=== PATIENT | female | born 1965 | race Caucasian/White ===

== ENCOUNTER → 2017-01-25 | Outpatient (CLI) | payer BC ==
--- NOTE | 2017-01-25 15:02 | MAMMOGRAPHY REPORT ---
BILATERAL DIGITAL SCREENING MAMMOGRAM TOMOSYNTHESIS WITH CAD: 01/25/2017 CLINICAL HISTORY: Routine screening. Patient has no complaints. TECHNIQUE: Breast tomosynthesis in addition to standard 2D mammography was performed. Current study was also evaluated with a Computer Aided Detection (CAD) system. COMPARISON: Comparison is made to exams dated: 11/17/2015 mammogram and 12/12/2013 mammogram. BREAST COMPOSITION: There are scattered areas of fibroglandular density in both breasts. FINDINGS: No suspicious masses, calcifications, or areas of architectural distortion are noted in e ither breast. There has been no significant interval change compared to prior exams. IMPRESSION: ACR BI-RADS CATEGORY 1: NEGATIVE There is no mammographic evidence of malignancy. A 1 year screening mammogram is recommended. The p atient will receive written notification of the results. Approximately 10% of breast cancers are not detected with mammography. A negative mammographic repor t should not delay biopsy if a clinically suggestive mass is present. Chana Ochoa M.D. ah/:01/25/2017 08:27:30 [place] Operator: Juliet MCDANIEL,R, M, [facility] letter sent: Normal 1/2 BI-RADS Code: ACR BI-RADS Category 1: Negative
== END | disposition home or self-care (01) ==
LOC: C.MAMM 08:01
PROVIDERS: ATTEND Family Medicine
DX: Z12.31 Encounter for screening mammogram for malignant neoplasm of breast (principal)

== ENCOUNTER → 2017-05-18 | Outpatient (CLI) | payer BC ==
[2017-05-18 13:01] LABS: ESTIMATED AVERAGE GLUCOSE 117 mg/dl; HA1C FLAG Normal (Normal)
[2017-05-18 17:11] LABS: CHOLESTEROL/HDL RATIO 4.7
== END | disposition home or self-care (01) ==
LOC: C.LABPBG 10:22
PROVIDERS: ATTEND Family Medicine
DX: Z01.419 Encounter for gynecological examination (general) (routine) without abnormal findings (principal); Z68.39 Body mass index [BMI] 39.0-39.9, adult; R73.09 Other abnormal glucose

== ENCOUNTER → 2017-05-18 | Outpatient (CLI) | payer BC ==
[2017-05-18 11:53] LABS: BASO % 1.7 %; COMPLETE YES; HEMATOCRIT 43.4 % (37-47); IG% 0.2 %; LYMPH % 34.5 %; LYMPH ABS # 2.07 K/uL (1.2-3.4); MEAN CELL VOLUME 87.5 fL (80-100); MEAN CORPUSCULAR HEMOGLOBIN 29.2 pg (25-34); MEAN CORPUSCULAR HGB CONC 33.4 g/dl (32-36); MEAN PLATELET VOLUME 11.8 fL (7.4-10.4); MONO % 10.7 %; NEUT % 47.9 %; PLATELET COUNT 255 K/uL (130-400); RED BLOOD COUNT 4.96 M/uL (4.2-5.4)
[2017-05-18 17:12] LABS: ALT/SGPT 23 U/L (12-78); AST/SGOT 15 U/L (15-37); BLOOD UREA NITROGEN 9 mg/dl (7-18); BUN/CREATININE RATIO 10.8 (10-20); CALCIUM 8.5 mg/dl (8.5-10.1); CARBON DIOXIDE 28 mmol/L (21-32); CHLORIDE 109 mmol/L (98-107); CREATININE 0.86 mg/dl (0.60-1.20); GLUCOSE 91 mg/dl (70-99); POTASSIUM 4.4 mmol/L (3.5-5.1); SODIUM 141 mmol/L (136-145)
[2017-05-18 17:15] LABS: ALKALINE PHOSPHATASE 71 U/L (45-117)
[2017-05-22 16:37] LABS: VIT B1 PLASMA(THIAMIN)**90353 9 nmol/L (8-30)
== END | disposition home or self-care (01) ==
LOC: C.LABPBG 10:25
PROVIDERS: ATTEND Physician Assistant Surgical
DX: E66.01 Morbid (severe) obesity due to excess calories (principal); Z98.84 Bariatric surgery status

== ENCOUNTER 2017-10-18 07:00 | Emergency (ER) | payer BC ==
[2017-10-18 07:07] VITALS: TEMP 36.8
[2017-10-18] MEDS ORDERED: SULF800T23 PO (07:25)
[2017-10-18] MEDS ORDERED: ALBINS/ INH (07:28)
[2017-10-18] MEDS ORDERED: BUPR-79 PO (07:28)
[2017-10-18] MEDS ORDERED: LEVALBUTEROL 0.63MG/3 ML NEB INH STA (07:42)
[2017-10-18] MEDS ORDERED: DEXAMETHASONE SOD INJ 4 MG/ML 5 ML VIAL IM STA (07:42)
[2017-10-18] MEDS ORDERED: DEXAMETHASONE **PF** INJ 10 MG/ML VIAL ONE (08:00)
[2017-10-18 08:04] VITALS: PULSE 100; O2SAT 99
--- NOTE | 2017-10-18 08:11 | DIAGNOSTIC IMAGING REPORT ---
CHEST ONE VIEW PORTABLE CLINICAL HISTORY: cough since Sat wheezing dyspnea COMPARISON STUDY: No previous studies for comparison. FINDINGS: Minimal atelectasis left base. Lungs otherwise clear. No evidence for cardiac enlargement. Diaphragms smooth. IMPRESSION: Minimal atelectasis left base. Otherwise negative study. The above report was generated using voice recognition software. It may contain grammatical, syntax or spelling errors. Electronically signed by: Phoenix Snyder M.D. 10/18/2017 8:09 AM Dictated Date/Time: 10/18/2017 8:09 AM
--- NOTE | 2017-10-18 08:18 | EMERGENCY ROOM VISIT NOTE ---
History First contact with patient: 07:15 Chief Complaint: RESPIRATORY PROBLEMS Stated Complaint: CANT BREATHE Nursing Triage Summary: pt reports being ill for 1 week with cough, sore throat, low grade temp pt saw pcp yesterday and started on Bactrim pt reports "feeling no better today" pt taking fluids at triage, noel asked pt to refrain from drinking, pt reports "if I dont drink my throat will close up" pt has no drooling and is able to swallow fluids took 2 neb this am History of Present Illness The patient is a 51 year old female who presents to the Emergency Room with complaints of a cough beginning 6 days ago. She reports the cough is non- productive, has been getting worse, and is associated with shortness of breath. She states she feels she is unable to get a full breath in. She denies a history of asthma, COPD, but states she has self-medicated with Bactrim bid since yesterday and her son's nebulizers this morning. She reported the nebulizers helped with her breathing but that they made her feel jittery. She denies chest pain, but states her ribs do ache after coughing. She denies n/v, abdominal pain, fever, chills, leg swelling, recent immobilization, surgery or travel. She has been eating and drinking without problems. She also reports her family members have been ill recently, with one daughter having a cold and the other recovering from strep throat. She reports she received the flu shot this year. Review of Systems See HPI for pertinent positives & negatives. A total of 10 systems reviewed and were otherwise negative. Past Medical/Surgical History Medical Problems: (1) PNA (pneumonia) Social History Smoking Status: Former Smoker Current/Historical Medications Scheduled Albuterol Sulf (Proventil 0.083% 2.5MG/3ML), Unknown Dose INH UD Bupropion (Wellbutrin Sr), 150 MG PO BID Sulfa/Trimethoprim (Bactrim Ds 800MG/160MG), 1 TAB PO BID Scheduled PRN Levalbuterol (Levalbuterol HCl), 0.63 MG NEB TID PRN for SOB/Wheezing Physical Exam Vital Signs Date Time Temp Pulse Resp B/P (MAP) Pulse Ox O2 Delivery O2 Flow Rate FiO2 10/18/17 08:08 101 24 136/77 10/18/17 08:04 100 18 99 Room Air 10/18/17 07:09 99 Room Air 10/18/17 07:07 36.8 107 20 162/83 98 Room Air Physical Exam General: Patient tearful and coughing intermittently. HEENT: Head - normocephalic and atraumatic. Ears - bilaterally patent canals with noninjected tympanic membranes and no evidence of hemotympanum. Nose - moist nasal mucosa without discharge. Mouth - moist buccal mucosa. Oropharynx is erythematous and there is no tonsillar exudate or edema noted. Heart: Regular rate and rhythm. There is a normal S1 and S2 with no murmurs, clicks, or gallops appreciated. Lungs: Clear to auscultation bilaterally with bilateral wheezing. Abdomen: Soft, completely nontender, nondistended, with good bowel sounds. There are no palpable pulsatile masses or hepatosplenomegaly. There is no guarding, rigidity, or rebound noted. Extremities: No evidence of cyanosis, clubbing, or edema. There are easily palpable peripheral pulses. Neuro:The patient is awake and alert, oriented to day, time, and place. Medical Decision & Procedures ER Provider Diagnostic Interpretation: CHEST ONE VIEW PORTABLE CLINICAL HISTORY: cough since Sat wheezing dyspnea COMPARISON STUDY: No previous studies for comparison. FINDINGS: Minimal atelectasis left base. Lungs otherwise clear. No evidence for cardiac enlargement. Diaphragms smooth. IMPRESSION: Minimal atelectasis left base. Otherwise negative study. Laboratory Results Test 10/18/17 07:50 Influenza Type A Antigen Neg for Influ A (NEG) Influenza Type B Antigen Neg for Influ B (NEG) Medications Administered Medications (Trade) Dose Ordered Sig/Paulie Route Start Time Stop Time Status Last Admin Dose Admin Levalbuterol (Xopenex 0.63 Mg/ 3 Ml Neb) 0.63 mg NOW STAT INH 10/18/17 07:42 10/18/17 07:46 DC 10/18/17 08:03 0.63 MG Dexamethasone Sodium Phosphate (Decadron Inj) 10 mg ONE STAT IM 10/18/17 07:42 10/18/17 07:46 DC 10/18/17 08:08 10 MG Dexamethasone Sodium Phosphate (Dexamethasone Inj Pf) 10 mg STK-MED ONCE .ROUTE 10/18/17 08:00 10/18/17 08:01 DC 10/18/17 08:02 10 MG ED Course 7:15: The patient was evaluated in room A9B. A complete history and physical exam was performed. 7:30: The patient's history was discussed with the attending, Dr. Jo. 7:42: Xopenox nebulizers and 10mg Decadron IM ordered 8:45: The patient was reassessed. She is resting comfortably in bed. She reports her breathing is improved after the nebulizer treatment. I discussed the x-ray and serology findings with her and she was agreeable for discharge. Medical Decision Etiologies such as pneumonia, influenza, reactive airway disease, viral bronchitis, pulmonary embolism, pneumothorax, infections, as well as others were entertained. Ms. Damon is a 51 year old female who presented with a 6 day history of feeling unwell with a cough and SOB. Her oxygen saturations were within normal limits during her stay in the emergency department. Her chest x-ray and influenza swab were both negative. She reported improvement in her symptoms with the Xopenex nebulizer and was also given 10mg of IM decadron. She was felt to be stable for discharge and was agreeable to this. She will be discharged with Xopenex nebulizers to use as needed and was counselled on following up with her family doctor early next week to ensure improvement in her symptoms. Impression Primary Impression: Flu-like symptoms Departure Information Dispostion Home / Self-Care Prescriptions Levalbuterol (Levalbuterol HCl) 0.63 Mg/3 Ml Nebu 0.63 MG NEB TID Y for SOB/Wheezing for 30 Days, #1 BTL Prov: Tonio Weber M.D. 10/18/17 Referrals Shyla Vasquez D.O. (PCP) Patient Instructions My [facility] Additional Instructions You came to [facility] due to feeling unwell with a cough and trouble breathing. We checked a chest x-ray, which was normal and did not show any signs of pneumonia. Your influenza swab was negative as well. Your symptoms are most likely caused by a flu-like illness and are due to a virus, which means antibiotics will not help. We recommend you stop taking the bactrim, and use the nebulizers we have prescribed as needed to help with your breathing. We also gave you a steroid injection at the hospital which will take 12-24 hours to kick in, but will help decrease the inflammation in your lungs and improve your breathing. Please drink plenty of fluids, use Tylenol and Ibuprofen as needed, and follow up with your primary care doctor early next week to ensure your symptoms are resolving. As we discussed, if you start to have fever/chills or your breathing worsens, please seek medical attention. Resident Tracking Resident Involvement: Resident Care Provided Care Provided: Adult ED
[2017-10-18 08:39] LABS: INFLUENZA B ANTIGEN Neg for Influ B (NEG)
[2017-10-18] MEDS ORDERED: XPNINS NEB (09:09)
[2017-10-18 09:14] LABS: INFLUENZA A PCR Neg for Influ A (NEG); INFLUENZA B PCR Neg for Influ B (NEG)
[2017-10-18 09:19] VITALS: BP 136/76; PULSE 99; O2SAT 97
--- NOTE | 2017-10-18 10:37 | EMERGENCY ROOM VISIT NOTE ---
History Report prepared by Fracisco: Collette Weiss Under the Supervision of: Dr. Dmitri Jo D.O. 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 She notes a persistent dry cough for five days, which she states has been worsening with time. She notes a sore throat, rib pain from coughing, and sick contacts. She currently rates her pain a 7/10 in severity. She states that her daughter has strep throat and her other daughter has a cold. She notes that she has self- medicated with Bactrim since yesterday and with her son's nebulizer this morning. She notes the nebulizer made her "jittery," though it provided mild relief. She denies any history of asthma, COPD, or tobacco use. She states that she did receive the flu shot this year. She denies any fevers, chills, nausea, vomiting, abdominal pain, chest pain, diarrhea, recent travels, or leg swelling. She also denies any recent immobilizations or surgeries. 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 She denies any recent travels or leg swelling. Review of Systems See HPI for pertinent positives & negatives. A total of 10 systems reviewed and were otherwise negative. Past Medical & Surgical Medical Problems: (1) PNA (pneumonia) Family History Diabetes mellitus Heart disease Hypertension Lung disease Seizures Social History Smoking Status: Former Smoker Smokeless Tobacco Use: No Alcohol Use: none Drug Use: none Occupation Status: employed Current/Historical Medications Scheduled Albuterol Sulf (Proventil 0.083% 2.5MG/3ML), Unknown Dose INH UD Bupropion (Wellbutrin Sr), 150 MG PO BID Sulfa/Trimethoprim (Bactrim Ds 800MG/160MG), 1 TAB PO BID Scheduled PRN Levalbuterol (Levalbuterol HCl), 0.63 MG NEB TID PRN for SOB/Wheezing Allergies Coded Allergies: Latex (Unverified Allergy, Unknown, Rash, 10/18/17) Physical Exam Vital Signs Date Time Temp Pulse Resp B/P (MAP) Pulse Ox O2 Delivery O2 Flow Rate FiO2 10/18/17 09:19 99 18 136/76 97 Room Air 10/18/17 08:08 101 24 136/77 10/18/17 08:04 100 18 99 Room Air 10/18/17 07:09 99 Room Air 10/18/17 07:07 36.8 107 20 162/83 98 Room Air Physical Exam CONSTITUTIONAL/VITAL SIGNS: Reviewed / noted above. GENERAL: Non-toxic in appearance. INTEGUMENTARY: Warm, dry, and [place]. HEAD: Normocephalic. EYES: without scleral icterus or trauma. ENT/OROPHARYNX: clear and moist. LYMPHADENOPATHY/NECK: Is supple without lymphadenopathy or meningismus. RESPIRATORY: Minimal scattered wheeze associated with coughing. CARDIOVASCULAR: Regular rate and rhythm. GI/ABDOMEN: Soft and nontender. No organomegaly or pulsatile mass. No rebound or guarding. Normal bowel sounds. EXTREMITIES: Warm and well perfused. BACK: No CVA tenderness. NEUROLOGICAL: Intact without focal deficits. PSYCHIATRIC: normal affect. MUSCULOSKELETAL: Normally developed with good muscle tone. Medical Decision & Procedures ER Provider Diagnostic Interpretation: Radiology results as stated below per my review and radiologist interpretation: CHEST ONE VIEW PORTABLE CLINICAL HISTORY: cough since Sat wheezing dyspnea COMPARISON STUDY: No previous studies for comparison. FINDINGS: Minimal atelectasis left base. Lungs otherwise clear. No evidence for cardiac enlargement. Diaphragms smooth. IMPRESSION: Minimal atelectasis left base. Otherwise negative study. The above report was generated using voice recognition software. It may contain grammatical, syntax or spelling errors. Electronically signed by: Phoenix Snyder M.D. 10/18/2017 8:09 AM Dictated Date/Time: 10/18/2017 8:09 AM Laboratory Results Test 10/18/17 07:50 Influenza Type A (RT-PCR) Neg for Influ A (NEG) Influenza Type A Antigen Neg for Influ A (NEG) Influenza Type B Antigen Neg for Influ B (NEG) Influenza Type B (RT-PCR) Neg for Influ B (NEG) Laboratory results as stated above per my review. Medications Administered Medications (Trade) Dose Ordered Sig/Paulie Route Start Time Stop Time Status Last Admin Dose Admin Levalbuterol (Xopenex 0.63 Mg/ 3 Ml Neb) 0.63 mg NOW STAT INH 10/18/17 07:42 10/18/17 07:46 DC 10/18/17 08:03 0.63 MG Dexamethasone Sodium Phosphate (Decadron Inj) 10 mg ONE STAT IM 10/18/17 07:42 10/18/17 07:46 DC 10/18/17 08:08 10 MG Dexamethasone Sodium Phosphate (Dexamethasone Inj Pf) 10 mg STK-MED ONCE .ROUTE 10/18/17 08:00 10/18/17 08:01 DC 10/18/17 08:02 10 MG ED Course 0745: Previous medical records were reviewed. The patient was evaluated in room A9B. A complete history and physical examination was performed. 0742: Dexamethasone Sodium Phosphate 10 mg IM and Levalbuterol 0.63 mg INH 0815: I reassessed the patient at this time. She is and resting comfortably. I discussed the results and treatment plan with the patient. I answered all pertaining questions that she had. She expressed understanding and verbalized agreement. The patient will be discharged home. Medical Decision Differentials considered include acute myocardial infarction, acute coronary syndrome, myocarditis, pericarditis, pericardial effusions /tamponade, esophageal perforation, pulmonary embolism, pneumonia, pneumothorax, cardiomyopathy, congestive heart, anemia, and COPD/asthma exacerbation. This is a 51-year-old female who presents to the ED with a chief complaint of cough, sore throat, fever, achiness. The patient's symptoms started on Sunday. She was seen with resident. The patient has an unremarkable exam. Scattered expiratory wheezing with cough. Initial blood pressure was elevated. Likely related to pain and her symptoms. She is not febrile or hypoxic. The patient was given a Xopenex treatment and Decadron IM. Chest x-ray did not show acute process. Flu swab was negative and strep test was negative. The patient was told the results. She is felt to be stable for discharge. Medication Reconcilliation Current Medication List: was personally reviewed by me Blood Pressure Screening Patient's blood pressure: Elevated blood pressure Blood pressure disposition: Elevated BP felt to be situational Impression Primary Impression: Bronchitis, acute Scribe Attestation The scribe's documentation has been prepared under my direction and personally reviewed by me in its entirety. I confirm that the note above accurately reflects all work, treatment, procedures, and medical decision making performed by me. Departure Information Dispostion Home / Self-Care Prescriptions Levalbuterol (Levalbuterol HCl) 0.63 Mg/3 Ml Nebu 0.63 MG NEB TID Y for SOB/Wheezing for 30 Days, #1 BTL Prov: Tonio Weber M.D. 10/18/17 Referrals Shyla Vasquez D.O. (PCP) Forms HOME CARE DOCUMENTATION FORM, IMPORTANT VISIT INFORMATION, WORK / SCHOOL INSTRUCTIONS Patient Instructions My [facility] Additional Instructions You came to [facility] due to feeling unwell with a cough and trouble breathing. We checked a chest x-ray, which was normal and did not show any signs of pneumonia. Your influenza swab was negative as well. Your symptoms are most likely caused by a flu-like illness and are due to a virus, which means antibiotics will not help. We recommend you stop taking the bactrim, and use the nebulizers we have prescribed as needed to help with your breathing. We also gave you a steroid injection at the hospital which will take 12-24 hours to kick in, but will help decrease the inflammation in your lungs and improve your breathing. Please drink plenty of fluids, use Tylenol and Ibuprofen as needed, and follow up with your primary care doctor early next week to ensure your symptoms are resolving. As we discussed, if you start to have fever/chills or your breathing worsens, please seek medical attention.
== END 2017-10-18 09:24 | disposition home or self-care (01) ==
LOC: C.EDB 07:01 → C.EDA 09:24
DX: J20.9 Acute bronchitis, unspecified (principal); Z87.891 Personal history of nicotine dependence

== ENCOUNTER → 2018-01-30 | Outpatient (CLI) | payer BC ==
[~2018-01-30] MED LIST: ALBINS/ INH; BUPR-79 PO; SULF800T23 PO
--- NOTE | 2018-01-30 15:12 | MAMMOGRAPHY REPORT ---
BILATERAL DIGITAL SCREENING MAMMOGRAM TOMOSYNTHESIS WITH CAD: 01/30/2018 CLINICAL HISTORY: Routine screening. Patient has no complaints. TECHNIQUE: Breast tomosynthesis in addition to standard 2D mammography was performed. Current study was also evaluated with a Computer Aided Detection (CAD) system. COMPARISON: Comparison is made to exams dated: 01/25/2017 mammogram - [facility], mammogram, and 12/12/2013 mammogram. BREAST COMPOSITION: There are scattered areas of fibroglandular density in both breasts. FINDINGS: No suspicious masses, calcifications, or areas of architectural distortion are noted in ei ther breast. There has been no significant interval change compared to prior exams. IMPRESSION: ACR BI-RADS CATEGORY 1: NEGATIVE There is no mammographic evidence of malignancy. A 1 year screening mammogram is recommended. The pa tient will receive written notification of the results. Approximately 10% of breast cancers are not detected with mammography. A negative mammographic report should not delay biopsy if a clinically suggestive mass is present. Chana Ochoa M.D. ah/:01/30/2018 08:20:23 Environmental Services Aide: Alicia MCDANIEL(Vaibhav)([place]), [facility] letter sent: Normal 1/2 BI-RADS Code: ACR BI-RADS Category 1: Negative
== END | disposition home or self-care (01) ==
LOC: C.MAMM 08:02
PROVIDERS: ATTEND Family Medicine
DX: Z12.31 Encounter for screening mammogram for malignant neoplasm of breast (principal)